=== PATIENT | female | born 1970 | race Hispanic/Latino ===

== ENCOUNTER 2023-09-08 06:50 | Day surgery (SDC) | payer OTHER ==
[2023-09-04 15:18] VITALS: BP 172/82; PULSE 64; RESP 16
[2023-09-08] VITALS (10 sets, daily range): BP systolic 112–136; BP diastolic 63–76; PULSE 62–77; RESP 14–16
[~2023-09-08] VITALS: Ht 167.6 cm; Wt 86.7 kg
[~2023-09-08 06:50] MED LIST: LOSA50TA64 PO; PRAV20TA4 PO; TIRZ15PE SQ
[2023-09-08] MEDS ORDERED: PROPOFOL 10 MG/ML 20ML VIAL IV ONE ×2 (09:15)
== END 2023-09-08 10:35 | disposition home or self-care (01) ==
LOC: DAH 06:50 → ENDO 06:50
PROVIDERS: ATTEND Internal Medicine Gastroenterology
DX: Z12.11 Encounter for screening for malignant neoplasm of colon (principal); K29.50 Unspecified chronic gastritis without bleeding; R12 Heartburn; R14.0 Abdominal distension (gaseous); I10 Essential (primary) hypertension; E78.00 Pure hypercholesterolemia, unspecified; E11.9 Type 2 diabetes mellitus without complications; E66.9 Obesity, unspecified; Z88.1 Allergy status to other antibiotic agents; Z88.2 Allergy status to sulfonamides; Z79.899 Other long term (current) drug therapy; Z98.890 Other specified postprocedural states; Z90.49 Acquired absence of other specified parts of digestive tract; Z68.31 Body mass index [BMI] 31.0-31.9, adult
CPT/HCPCS: 81025; 82948 ×2; 43239; 45378; J2704 ×2; A4620; A4215; A4223; A7002; A4222; A4221; A4663; A4216; J7030; A4606; J3490